=== PATIENT | male | born 1985 | race Caucasian/White ===

== ENCOUNTER 2017-02-23 16:55 | Inpatient (IN) | payer OTHER ==
[2017-02-23 21:04] VITALS: BMI 27.3
--- NOTE | 2017-02-23 21:33 | HP ---
CIWA Score - CIWA Score Nausea/Vomitin-Mild Nausea/No Vomiting Muscle Tremors: 4-Moderate,w/Arms Extend Anxiety: 4-Mod. Anxious/Guarded Agitation: 4-Moderately Restless Paroxysmal Sweats: 1-Minimal Palms Moist Orientation: 0-Oriented Tacttile Disturbances: 0-None Auditory Disturbances: 0-None Visual Disturbances: 0-None Headache: 1-Very Mild CIWA-Ar Total Score: 15 Admission ROS BHS - HPI Chief Complaint: withdrawal sx Allergies/Adverse Reactions: Allergies Allergy/AdvReac Type Severity Reaction Status Date / Time NSAIDS (Non-Steroidal Allergy Verified 02/01/16 16:24 Anti-Inflamma Penicillins Allergy Verified 02/01/16 16:24 History of Present Illness: 31 years old male with long history of xanax klonopin nicotine dependence has hyperlipidemia no treatment, and depression is admitted to detox Exam Limitations: No Limitations - Ebola screening Have you traveled outside of the country in the last 21 days: No Have you had contact with anyone from an Ebola affected area: No Have you been sick,other than usual withdrawal symptoms: No Do you have a fever: No - Review of Systems Constitutional: Changes in sleep, Weight Stable EENT: reports: No Symptoms Reported Respiratory: reports: No Symptoms reported Cardiac: reports: No Symptoms Reported GI: reports: Nausea, Poor Fluid Intake, Abdominal cramping : reports: No Symptoms Reported Musculoskeletal: reports: No Symptoms Reported Integumentary: reports: No Symptoms Reported Neuro: reports: Tremors Endocrine: reports: No Symptoms Reported Hematology: reports: No Symptoms Reported Psychiatric: reports: Judgement Intact, Orientated x3, Depressed Other Systems: Reviewed and Negative Patient History - Patient Medical History Hx Anemia: No Hx Asthma: No Hx Chronic Obstructive Pulmonary Disease (COPD): No Hx Cancer: No Hx Cardiac Disorders: No Hx Congestive Heart Failure: No Hx Hypertension: No Hx Hypercholesterolemia: Yes (no treatment) Hx Pacemaker: No HX Cerebrovascular Accident: No Hx Seizures: No Hx Dementia: No Hx Diabetes: No Hx Gastrointestinal Disorders: No Hx Liver Disease: No Hx Genitourinary Disorders: No Hx Sexually Transmitted Disorders: No Hx Renal Disease (ESRD): No Hx Thyroid Disease: No Hx Human Immunodeficiency Virus (HIV): No (LAST 12/17) Hx Hepatitis C: No Hx Depression: Yes Hx Suicide Attempt: No Hx Bipolar Disorder: No Hx Schizophrenia: No - Patient Surgical History Past Surgical History: No Hx Neurologic Surgery: No Hx Cataract Extraction: No Hx Cardiac Surgery: No Hx Lung Surgery: No Hx Breast Surgery: No Hx Breast Biopsy: No Hx Abdominal Surgery: No Hx Appendectomy: No Hx Cholecystectomy: No Hx Genitourinary Surgery: No Hx Orthopedic Surgery: No - PPD History Previous Implant?: Yes Documented Results: Negative w/proof Implanted On Prior [facility] Admission?: Yes Date: 02/03/16 PPD to be Administered?: Yes - Smoking Cessation Smoking history: Current every day smoker Have you smoked in the past 12 months: Yes Aproximately how many cigarettes per day: 20 Hx Chewing Tobacco Use: No Initiated information on smoking cessation: Yes 'Breaking Loose' booklet given: 02/23/17 - Substance & Tx. History Hx Alcohol Use: No Hx Substance Use: Yes Substance Use Type: Cocaine, Opiates, Tranquilizers Hx Substance Use Treatment: Yes (10/2015 [facility] - Substances Abused Alprazolam (Xanax) Route: Oral Frequency: Daily Amount used: 4 mg Age of first use: 25 Date of Last Use: 02/22/17 Benzodiazepine (Klonopin) Route: Oral Frequency: Daily Amount used: 1 mg Age of first use: 29 Date of Last Use: 02/22/17 Family Disease History - Family Disease History Family Disease History: Diabetes: Father Admission Physical Exam [facility] - Vital Signs Vital Signs: Vital Signs - 24 hr 02/23/17 20:58 Temperature 98.0 F Pulse Rate 61 Respiratory 20 Rate Blood Pressure 121/72 - Physical General Appearance: Yes: Nourished, Appropriately Dressed, Mild Distress, Tremorous, Irritable, Sweating, Anxious HEENTM: Yes: Hearing grossly Normal, Normal ENT Inspection, Normocephalic, Normal Voice Respiratory: Yes: Chest Non-Tender, Lungs Clear, Normal Breath Sounds, No Respiratory Distress, No Accessory Muscle Use Neck: Yes: Supple, Trachea in good position Breast: Yes: Breasts Symetrical Cardiology: Yes: Regular Rhythm, Regular Rate, S1, S2 Abdominal: Yes: Non Tender, Soft Genitourinary: Yes: Within Normal Limits Back: Yes: Normal Inspection Musculoskeletal: Yes: full range of Motion, Gait Steady Extremities: Yes: Normal Inspection, Normal Range of Motion, Non-Tender, Tremors Neurological: Yes: Alert, Motor Strength 5/5, Normal Response, Depressed Affect Integumentary: Yes: Warm Lymphatic: Yes: Within Normal Limits - Diagnostic (1) Methadone maintenance therapy patient Current Visit: Yes Status: Chronic Comment: 100 mg verification pending (2) Nicotine dependence Current Visit: Yes Status: Chronic Qualifiers: Nicotine product type: cigarettes Substance use status: in withdrawal Qualified Code(s): F17.213 - Nicotine dependence, cigarettes, with withdrawal; F17.213 - Nicotine dependence, cigarettes, with withdrawal (3) Depression (emotion) Current Visit: Yes Status: Suspected Qualifiers: Depression Type: dysthymia Qualified Code(s): F34.1 - Dysthymic disorder; F34.1 - Dysthymic disorder; F34.1 - Dysthymic disorder (4) Sedative, hypnotic or anxiolytic dependence with withdrawal, uncomplicated Current Visit: Yes Status: Acute Cleared for Admission [facility] - Detox or Rehab [facility] Level of Care: Medically Managed Detox Regimen/Protocol: Valium [facility] Breath Alcohol Content Breath Alcohol Content: 0 Urine Drug Screen - Results Drug Screen Negative: No Urine Drug Screen Results: CHUCKY-Cocaine, OPI-Opiates, BZO-Benzodiazepines, MTD- Methadone
[2017-02-23] MEDS ORDERED: MAG HYDROX/AL HYDROX/SIMETH 30 ML UNIT-DOSE CUP PO PRN (21:38)
[2017-02-23] MEDS ORDERED: NICOTINE POLACRILEX 4 MG GUM BUC PRN (21:38)
[2017-02-23] MEDS ORDERED: diazePAM 5 MG TABLET PO ONE (21:38)
[2017-02-23] MEDS ORDERED: MAGNESIUM HYDROX 2400MG/30ML ORAL SUSPENSION 30 ML CUP PO PRN (21:38)
[2017-02-23] MEDS ORDERED: LOPERAMIDE HCL 2 MG CAPSULE PO PRN (21:38)
[2017-02-23] MEDS ORDERED: ACETAMINOPHEN 325 MG TABLET (FP) PO PRN (21:38)
[2017-02-23] MEDS ORDERED: P-EPHED 60MG/TRIPROLIDI 2.5MG TABLET PO PRN (21:38)
[2017-02-23] MEDS ORDERED: MENTHOL/PHENOL 1 EACH UD MM PRN (21:38)
[2017-02-23] MEDS ORDERED: guaiFENesin/D-METHORPHAN HB 10 ML UNIT-DOSE CUPS PO PRN (21:38)
[2017-02-23] MEDS ORDERED: MAGNESIUM CITRATE 300 ML BOTTLE PO PRN (21:38)
[2017-02-23] MEDS: diazePAM 5 MG TABLET PO SCH (23:38)
[2017-02-23] MEDS: THIAMINE HCL 100 MG TABLET (FP) PO SCH (23:39)
[2017-02-23] MEDS: diphenhydrAMINE HCL 50 MG CAPSULE PO PRN (23:40)
[2017-02-24] MEDS: diazePAM 5 MG TABLET PO SCH ×3 (05:41→22:23)
[2017-02-24] MEDS ORDERED: METHADONE HCL 10 MG TABLET PO SCH (09:45)
[2017-02-24] MEDS ORDERED: METHADONE HCL 10 MG TABLET ONE (10:01)
[2017-02-24] MEDS ORDERED: METHADONE HCL 40 MG DISPERSABLE TABLET ONE (10:02)
[2017-02-24 10:09] LABS: MCH 29.3 pg (25.7-33.7); MCHC 33.6 g/dl (32.0-35.9); MEAN CELL VOLUME 87.2 fl (80-96); MEAN PLT VOLUME 7.3 fl (7.5-11.1); PLATELET COUNT 297 K/MM3 (134-434); RDW 14.3 % (11.9-15.9); WHITE BLOOD COUNT 6.4 K/mm3 (4.0-10.0)
[2017-02-24] MEDS: METHADONE 80 MG, METHADONE 20 MG PO SCH (10:18)
[2017-02-24] MEDS: diazePAM 5 MG TABLET PO PRN ×2 (10:18→17:18)
[2017-02-24] MEDS: PRENATAL VITAMINS W/ FOLIC ACID TABLET (FP) PO SCH (10:18)
[2017-02-24] MEDS: NICOTINE 21 MG/24 HOURS TOPICAL PATCH TD SCH (10:18)
[2017-02-24 10:26] LABS: ALBUMIN 3.2 g/dl (3.4-5.0); ANION GAP 9 (8-16); CALCIUM 8.1 mg/dL (8.5-10.1); CO2 28 mmol/L (21-32); GLUCOSE,RANDOM 83 mg/dL (74-106); SGOT/AST 14 U/L (15-37); SGPT/ALT 26 U/L (12-78)
[2017-02-24 10:27] LABS: ALK PHOS 84 U/L (45-117); BILIRUBIN,TOTAL 0.3 mg/dL (0.2-1.0); TOT PROT 6.2 g/dl (6.4-8.2)
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
--- NOTE | 2017-02-24 11:25 | PN ---
[facility] CIWA - CIWA Score Nausea/Vomitin-No Nausea/No Vomiting Muscle Tremors: 3 Anxiety: 4-Mod. Anxious/Guarded Agitation: 3 Paroxysmal Sweats: 3 Orientation: 0-Oriented Tacttile Disturbances: 0-None Auditory Disturbances: 2-Mild Harshness/Frighten Visual Disturbances: 2-Mild Sensitivity Headache: 0-None Present CIWA-Ar Total Score: 17 BHS Progress Note (SOAP) Subjective: Sweating, Fatigue, Tremors. Objective: PT. A & O X 3, OBSERVED AMBULATING ON UNIT. NO ACUTE DISTRESS. 02/24/17 11:22 Vital Signs Temperature 96.1 F L 02/24/17 09:39 Pulse Rate 76 02/24/17 09:39 Respiratory Rate 18 02/24/17 09:39 Blood Pressure 113/72 02/24/17 09:39 O2 Sat by Pulse Oximetry (%) Laboratory Tests 02/24/17 02/24/17 07:00 07:00 WBC 6.4 RBC 4.64 Hgb 13.6 Hct 40.5 MCV 87.2 MCH 29.3 MCHC 33.6 RDW 14.3 Plt Count 297 MPV 7.3 L Sodium 144 Potassium 3.8 Chloride 107 Carbon Dioxide 28 Anion Gap 9 BUN 16 Creatinine 1.0 D Creat Clearance w eGFR > 60 Random Glucose 83 Calcium 8.1 L Total Bilirubin 0.3 D AST 14 L D ALT 26 Alkaline Phosphatase 84 Total Protein 6.2 L Albumin 3.2 L LABS NOTED. UA, RPR, HCV AB, AND HIV RESULTS PENDING. 02/24/17 11:24 Assessment: 02/24/17 11:24 WITHDRAWAL SYMPTOMS. Plan: CONTINUE DETOX. INCREASE DAILY PO FLUID INTAKE.
[2017-02-24 12:28] LABS: HIV 1 & 2 AB NEGATIVE; HIV 1 AGp24 NEGATIVE
--- NOTE | 2017-02-24 20:26 | EKG ---
Test Reason : Blood Pressure : / mmHG Vent. Rate : 064 BPM Atrial Rate : 064 BPM P-R Int : 176 ms QRS Dur : 094 ms QT Int : 432 ms P-R-T Axes : 057 082 050 degrees QTc Int : 445 ms NORMAL SINUS RHYTHM WITH SINUS ARRHYTHMIA NORMAL ECG NO PREVIOUS ECGS AVAILABLE Confirmed by PIERRE BEY MD ([id number]) on 02/24/2017 8:26:40 PM Referred By: BELKIS PRIEST Confirmed By:PIERRE BEY MD
[2017-02-24] MEDS: diphenhydrAMINE HCL 50 MG CAPSULE PO PRN (22:23)
[2017-02-24] MEDS: THIAMINE HCL 100 MG TABLET (FP) PO SCH (22:23)
[2017-02-25] MEDS ORDERED: METHADONE HCL 10 MG TABLET ONE (03:50)
[2017-02-25] MEDS ORDERED: METHADONE HCL 40 MG DISPERSABLE TABLET ONE (03:51)
[2017-02-25] MEDS: diazePAM 5 MG TABLET PO PRN ×2 (05:44→17:06)
[2017-02-25] MEDS: METHADONE 80 MG, METHADONE 20 MG PO SCH (05:44)
[2017-02-25] MEDS: PRENATAL VITAMINS W/ FOLIC ACID TABLET (FP) PO SCH (10:07)
[2017-02-25] MEDS: diazePAM 5 MG TABLET PO SCH ×2 (10:07→22:16)
[2017-02-25] MEDS: NICOTINE 21 MG/24 HOURS TOPICAL PATCH TD SCH (10:08)
--- NOTE | 2017-02-25 10:34 | PN ---
[facility] CIWA - CIWA Score Nausea/Vomitin-No Nausea/No Vomiting Muscle Tremors: 4-Moderate,w/Arms Extend Anxiety: 4-Mod. Anxious/Guarded Agitation: 4-Moderately Restless Paroxysmal Sweats: 1-Minimal Palms Moist Orientation: 0-Oriented Tacttile Disturbances: 3-Moderate Itch/Numb/Burn Auditory Disturbances: 0-None Visual Disturbances: 0-None Headache: 0-None Present CIWA-Ar Total Score: 16 S Progress Note (SOAP) Subjective: ANXIETY,SWEATS. DETOX PROCEEDING WELL. Objective: 02/25/17 10:33 Vital Signs Temperature 98.1 F 02/25/17 09:47 Pulse Rate 82 02/25/17 09:47 Respiratory Rate 18 02/25/17 09:47 Blood Pressure 112/65 02/25/17 09:47 O2 Sat by Pulse Oximetry (%) Laboratory Last Values WBC 6.4 K/mm3 (4.0-10.0) 02/24/17 07:00 RBC 4.64 M/mm3 (4.00-5.60) 02/24/17 07:00 Hgb 13.6 GM/dL (11.7-16.9) 02/24/17 07:00 Hct 40.5 % (35.4-49) 02/24/17 07:00 MCV 87.2 fl (80-96) 02/24/17 07:00 MCH 29.3 pg (25.7-33.7) 02/24/17 07:00 MCHC 33.6 g/dl (32.0-35.9) 02/24/17 07:00 RDW 14.3 % (11.9-15.9) 02/24/17 07:00 Plt Count 297 K/MM3 (134-434) 02/24/17 07:00 MPV 7.3 fl (7.5-11.1) L 02/24/17 07:00 Sodium 144 mmol/L (136-145) 02/24/17 07:00 Potassium 3.8 mmol/L (3.5-5.1) 02/24/17 07:00 Chloride 107 mmol/L (98-107) 02/24/17 07:00 Carbon Dioxide 28 mmol/L (21-32) 02/24/17 07:00 Anion Gap 9 (8-16) 02/24/17 07:00 BUN 16 mg/dL (7-18) 02/24/17 07:00 Creatinine 1.0 mg/dL (0.7-1.3) D 02/24/17 07:00 Creat Clearance w eGFR > 60 (>60) 02/24/17 07:00 Random Glucose 83 mg/dL (74-106) 02/24/17 07:00 Calcium 8.1 mg/dL (8.5-10.1) L 02/24/17 07:00 Total Bilirubin 0.3 mg/dL (0.2-1.0) D 02/24/17 07:00 AST 14 U/L (15-37) L D 02/24/17 07:00 ALT 26 U/L (12-78) 02/24/17 07:00 Alkaline Phosphatase 84 U/L (45-117) 02/24/17 07:00 Total Protein 6.2 g/dl (6.4-8.2) L 02/24/17 07:00 Albumin 3.2 g/dl (3.4-5.0) L 02/24/17 07:00 RPR Titer Nonreactive (NONREACTIVE) 02/24/17 07:00 Hepatitis C Antibody <0.1 s/co ratio (0.0-0.9) 02/23/17 07:00 HIV 1&2 Antibody Screen Negative 02/24/17 07:00 HIV P24 Antigen Negative 02/24/17 07:00 Assessment: 02/25/17 10:33 WITHDRAWAL SX Plan: CONTINUE DETOX
[2017-02-25 13:26] LABS: URINE APPEARANCE SLCLOUDY; URINE BILIRUBIN NEGATIVE (NEGATIVE); URINE BLOOD NEGATIVE (NEGATIVE); URINE COLOR YELLOW; URINE GLUCOSE (UA) NEGATIVE (NEGATIVE); URINE KETONE NEGATIVE (NEGATIVE); URINE NITRITE NEGATIVE (NEGATIVE); URINE PROTEIN NEGATIVE (NEGATIVE); URINE UROBILINOGEN NEGATIVE mg/dL (0.2-1.0)
[2017-02-25 17:11] LABS: URINE LEUK ESTERASE Negative (NEGATIVE)
[2017-02-25] MEDS: THIAMINE HCL 100 MG TABLET (FP) PO SCH (22:16)
[2017-02-25] MEDS: diphenhydrAMINE HCL 50 MG CAPSULE PO PRN (22:16)
[2017-02-26] MEDS ORDERED: METHADONE HCL 40 MG DISPERSABLE TABLET ONE (03:57)
[2017-02-26] MEDS ORDERED: METHADONE HCL 10 MG TABLET ONE (03:57)
[2017-02-26] MEDS: METHADONE 80 MG, METHADONE 20 MG PO SCH (05:47)
[2017-02-26] MEDS: diazePAM 5 MG TABLET PO PRN (05:47)
[2017-02-26] MEDS: diazePAM 5 MG TABLET PO SCH (10:07)
[2017-02-26] MEDS: NICOTINE 21 MG/24 HOURS TOPICAL PATCH TD SCH (10:07)
[2017-02-26] MEDS: PRENATAL VITAMINS W/ FOLIC ACID TABLET (FP) PO SCH (10:07)
--- NOTE | 2017-02-26 10:10 | PN ---
S Progress Note (SOAP) Subjective: DECREASED ANXIETY,SWEATS, DETOX PROCEEDING WELL. Objective: 02/26/17 10:09 Vital Signs Temperature 98.9 F 02/26/17 09:11 Pulse Rate 74 02/26/17 09:11 Respiratory Rate 20 02/26/17 09:11 Blood Pressure 104/66 02/26/17 09:11 O2 Sat by Pulse Oximetry (%) Laboratory Last Values WBC 6.4 K/mm3 (4.0-10.0) 02/24/17 07:00 RBC 4.64 M/mm3 (4.00-5.60) 02/24/17 07:00 Hgb 13.6 GM/dL (11.7-16.9) 02/24/17 07:00 Hct 40.5 % (35.4-49) 02/24/17 07:00 MCV 87.2 fl (80-96) 02/24/17 07:00 MCH 29.3 pg (25.7-33.7) 02/24/17 07:00 MCHC 33.6 g/dl (32.0-35.9) 02/24/17 07:00 RDW 14.3 % (11.9-15.9) 02/24/17 07:00 Plt Count 297 K/MM3 (134-434) 02/24/17 07:00 MPV 7.3 fl (7.5-11.1) L 02/24/17 07:00 Sodium 144 mmol/L (136-145) 02/24/17 07:00 Potassium 3.8 mmol/L (3.5-5.1) 02/24/17 07:00 Chloride 107 mmol/L (98-107) 02/24/17 07:00 Carbon Dioxide 28 mmol/L (21-32) 02/24/17 07:00 Anion Gap 9 (8-16) 02/24/17 07:00 BUN 16 mg/dL (7-18) 02/24/17 07:00 Creatinine 1.0 mg/dL (0.7-1.3) D 02/24/17 07:00 Creat Clearance w eGFR > 60 (>60) 02/24/17 07:00 Random Glucose 83 mg/dL (74-106) 02/24/17 07:00 Calcium 8.1 mg/dL (8.5-10.1) L 02/24/17 07:00 Total Bilirubin 0.3 mg/dL (0.2-1.0) D 02/24/17 07:00 AST 14 U/L (15-37) L D 02/24/17 07:00 ALT 26 U/L (12-78) 02/24/17 07:00 Alkaline Phosphatase 84 U/L (45-117) 02/24/17 07:00 Total Protein 6.2 g/dl (6.4-8.2) L 02/24/17 07:00 Albumin 3.2 g/dl (3.4-5.0) L 02/24/17 07:00 Urine Color Yellow 02/25/17 09:50 Urine Appearance Slcloudy 02/25/17 09:50 Urine pH 5.0 (5.0-8.0) 02/25/17 09:50 Ur Specific [place] 1.025 (1.005-1.025) 02/25/17 09:50 Urine Protein Negative (NEGATIVE) 02/25/17 09:50 Urine Glucose (UA) Negative (NEGATIVE) 02/25/17 09:50 Urine Ketones Negative (NEGATIVE) 02/25/17 09:50 Urine Blood Negative (NEGATIVE) 02/25/17 09:50 Urine Nitrite Negative (NEGATIVE) 02/25/17 09:50 Urine Bilirubin Negative (NEGATIVE) 02/25/17 09:50 Urine Urobilinogen Negative mg/dL (0.2-1.0) 02/25/17 09:50 Ur Leukocyte Esterase Negative (NEGATIVE) 02/25/17 09:50 RPR Titer Nonreactive (NONREACTIVE) 02/24/17 07:00 Hepatitis C Antibody <0.1 s/co ratio (0.0-0.9) 02/23/17 07:00 HIV 1&2 Antibody Screen Negative 02/24/17 07:00 HIV P24 Antigen Negative 02/24/17 07:00 Assessment: 02/26/17 10:09 DECREASED WITHDRAWAL SX Plan: CONTINUE DETOX
[2017-02-26 14:00] VITALS: BP 109/65; PULSE 82; TEMP 96.3
--- NOTE | 2017-02-26 14:58 | DS ---
[facility] Detox Discharge Summary Admission Date: 02/23/17 Discharge Date: 02/26/17 - History Present History: Opioid Dependence, Sedative Dependence, MMTP Additional Comments: Pt is medically stable. Alert o x 3. NAD.Discharged to rehab today. - Physical Exam Results Vital Signs: Vital Signs Temperature 96.3 F L 02/26/17 13:59 Pulse Rate 82 02/26/17 13:59 Respiratory Rate 20 02/26/17 13:59 Blood Pressure 109/65 02/26/17 13:59 O2 Sat by Pulse Oximetry (%) - Medication Discharge Medications: Ambulatory Orders NK [No Known Home Medication] 10/15/15 - Diagnosis (1) Sedative, hypnotic or anxiolytic dependence with withdrawal, uncomplicated Status: Acute (2) Nicotine dependence Status: Chronic Qualifiers: Nicotine product type: cigarettes Substance use status: in withdrawal Qualified Code(s): F17.213 - Nicotine dependence, cigarettes, with withdrawal; F17.213 - Nicotine dependence, cigarettes, with withdrawal (3) Methadone maintenance therapy patient Status: Chronic (4) Hyperlipidemia Status: Chronic Qualifiers: Hyperlipidemia type: unspecified Qualified Code(s): E78.5 - Hyperlipidemia, unspecified; E78.5 - Hyperlipidemia, unspecified; E78.5 - Hyperlipidemia, unspecified
[2017-02-27] MEDS ORDERED: diazePAM 5 MG TABLET PO SCH (10:00)
== END 2017-02-26 13:26 | disposition other institution (70) | DRG 773 ==
LOC: YASAS 16:55 → Y3N 22:34
PROVIDERS: ADMIT Internal Medicine; ATTEND Internal Medicine
PROC: HZ2ZZZZ Detoxification Services for Substance Abuse Treatment (ICD-10-PCS; principal; 2017-02-23)
DX: F13.230 Sedative, hypnotic or anxiolytic dependence with withdrawal, uncomplicated (principal); F11.20 Opioid dependence, uncomplicated; F17.213 Nicotine dependence, cigarettes, with withdrawal; F90.9 Attention-deficit hyperactivity disorder, unspecified type; F34.1 Dysthymic disorder; E78.5 Hyperlipidemia, unspecified; Z88.0 Allergy status to penicillin; Z88.6 Allergy status to analgesic agent
CPT/HCPCS: 36415; 80053; 81003; 85027; 86593; 86803; 87389; 93005; 93010

== ENCOUNTER 2017-02-26 15:49 | Inpatient (IN) | payer OTHER ==
--- NOTE | 2017-02-26 16:30 | HP ---
[facility] Rehab Assess/Revision - Admission History Admitted to Rehab from: [facility] Date of Admission to Rehab: 02/26/17 - Findings Detox History & Physical reviewed: Yes Concur with findings: Yes Comments/Additional Findings: transferred from detox to rehab admission as per protocol
--- NOTE | 2017-02-26 16:31 | HP ---
Admission ROS S - HPI Allergies/Adverse Reactions: Allergies Allergy/AdvReac Type Severity Reaction Status Date / Time NSAIDS (Non-Steroidal Allergy Verified 02/01/16 16:24 Anti-Inflamma Penicillins Allergy Verified 02/01/16 16:24 Patient History - Patient Medical History Hx Anemia: No Hx Asthma: No Hx Chronic Obstructive Pulmonary Disease (COPD): No Hx Cancer: No Hx Cardiac Disorders: No Hx Congestive Heart Failure: No Hx Hypertension: No Hx Hypercholesterolemia: Yes (no treatment) Hx Pacemaker: No HX Cerebrovascular Accident: No Hx Seizures: No Hx Dementia: No Hx Diabetes: No Hx Gastrointestinal Disorders: No Hx Liver Disease: No Hx Genitourinary Disorders: No Hx Sexually Transmitted Disorders: No Hx Renal Disease (ESRD): No Hx Thyroid Disease: No Hx Human Immunodeficiency Virus (HIV): No (LAST 12/17) Hx Hepatitis C: No Hx Depression: Yes Hx Suicide Attempt: No Hx Bipolar Disorder: No Hx Schizophrenia: No - Patient Surgical History Past Surgical History: No Hx Neurologic Surgery: No Hx Cataract Extraction: No Hx Cardiac Surgery: No Hx Lung Surgery: No Hx Breast Surgery: No Hx Breast Biopsy: No Hx Abdominal Surgery: No Hx Appendectomy: No Hx Cholecystectomy: No Hx Genitourinary Surgery: No Hx Section: No Hx Orthopedic Surgery: No Anesthesia Reaction: No - PPD History Date: 02/25/17 - Smoking Cessation Smoking history: Current every day smoker Have you smoked in the past 12 months: Yes Aproximately how many cigarettes per day: 20 Cigars Per Day: 0 Hx Chewing Tobacco Use: No Initiated information on smoking cessation: Yes 'Breaking Loose' booklet given: 02/26/17 Family Disease History - Family Disease History Family Disease History: Diabetes: Father BHS Breath Alcohol Content Breath Alcohol Content: 0 Inpatient Rehab Admission - Initial Determination Are CD services needed?: Yes Free of communicable disease: Yes Not in need of hospitalization: Yes - Rehab Admission Criteria Previous failed treatment: Yes Poor recovery environment: Yes Comorbidities: Yes Lacks judgement: No Patient is meeting Inpatient Rehab admission criteria:: Yes
[2017-02-26] MEDS ORDERED: MENTHOL/PHENOL 1 EACH UD MM PRN (16:32)
[2017-02-26] MEDS ORDERED: MAG HYDROX/AL HYDROX/SIMETH 30 ML UNIT-DOSE CUP PO PRN (16:32)
[2017-02-26] MEDS ORDERED: LOPERAMIDE HCL 2 MG CAPSULE PO PRN (16:32)
[2017-02-26] MEDS ORDERED: IBUPROFEN 400 MG TABLET (FP) PO PRN (16:32)
[2017-02-26] MEDS ORDERED: MAGNESIUM CITRATE 300 ML BOTTLE PO PRN (16:32)
[2017-02-26] MEDS ORDERED: guaiFENesin/D-METHORPHAN HB 10 ML UNIT-DOSE CUPS PO PRN (16:32)
[2017-02-26] MEDS ORDERED: MAGNESIUM HYDROX 2400MG/30ML ORAL SUSPENSION 30 ML CUP PO PRN (16:32)
[2017-02-26] MEDS ORDERED: P-EPHED 60MG/TRIPROLIDI 2.5MG TABLET PO PRN (16:32)
[2017-02-26] MEDS ORDERED: ACETAMINOPHEN 325 MG TABLET (FP) PO PRN (16:32)
[2017-02-26] MEDS ORDERED: NICOTINE POLACRILEX 2 MG GUM BUC PRN (16:32)
[2017-02-26] MEDS: diphenhydrAMINE HCL 50 MG CAPSULE PO PRN (21:27)
[2017-02-26] MEDS: THIAMINE HCL 100 MG TABLET (FP) PO SCH (21:27)
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
[2017-02-27] MEDS ORDERED: METHADONE HCL 40 MG DISPERSABLE TABLET PO SCH (07:45)
[2017-02-27] MEDS ORDERED: METHADONE HCL 10 MG TABLET ONE (07:48)
[2017-02-27] MEDS ORDERED: METHADONE HCL 40 MG DISPERSABLE TABLET ONE (07:49)
[2017-02-27] MEDS: METHADONE 80 MG, METHADONE 20 MG PO SCH (07:55)
[2017-02-27] MEDS: PRENATAL VITAMINS W/ FOLIC ACID TABLET (FP) PO SCH (09:57)
[2017-02-27] MEDS: NICOTINE 14 MG/24 HOURS TOPICAL PATCH TD PRN (09:57)
[2017-02-27] MEDS: diphenhydrAMINE HCL 50 MG CAPSULE PO PRN (21:30)
[2017-02-27] MEDS: THIAMINE HCL 100 MG TABLET (FP) PO SCH (21:30)
[2017-02-28] MEDS ORDERED: METHADONE HCL 10 MG TABLET ONE (06:22)
[2017-02-28] MEDS ORDERED: METHADONE HCL 40 MG DISPERSABLE TABLET ONE (06:23)
[2017-02-28] MEDS: METHADONE 80 MG, METHADONE 20 MG PO SCH (06:37)
[2017-02-28] MEDS: PRENATAL VITAMINS W/ FOLIC ACID TABLET (FP) PO SCH (10:16)
[2017-02-28] MEDS: NICOTINE 14 MG/24 HOURS TOPICAL PATCH TD PRN (10:17)
[2017-02-28] MEDS: diphenhydrAMINE HCL 50 MG CAPSULE PO PRN (21:57)
[2017-02-28] MEDS: THIAMINE HCL 100 MG TABLET (FP) PO SCH (21:57)
[2017-03-01] MEDS ORDERED: METHADONE HCL 10 MG TABLET ONE (03:11)
[2017-03-01] MEDS ORDERED: METHADONE HCL 40 MG DISPERSABLE TABLET ONE (03:12)
[2017-03-01] MEDS: METHADONE 80 MG, METHADONE 20 MG PO SCH (06:40)
[2017-03-01] MEDS: PRENATAL VITAMINS W/ FOLIC ACID TABLET (FP) PO SCH (10:11)
[2017-03-01] MEDS: NICOTINE 14 MG/24 HOURS TOPICAL PATCH TD PRN (10:11)
[2017-03-01] MEDS: THIAMINE HCL 100 MG TABLET (FP) PO SCH (21:39)
[2017-03-01] MEDS: diphenhydrAMINE HCL 50 MG CAPSULE PO PRN (21:39)
[2017-03-02] MEDS ORDERED: METHADONE HCL 10 MG TABLET ONE (05:21)
[2017-03-02] MEDS ORDERED: METHADONE HCL 40 MG DISPERSABLE TABLET ONE (05:22)
[2017-03-02] MEDS: METHADONE 80 MG, METHADONE 20 MG PO SCH (06:12)
[2017-03-02] MEDS: PRENATAL VITAMINS W/ FOLIC ACID TABLET (FP) PO SCH (10:21)
[2017-03-02] MEDS: NICOTINE 14 MG/24 HOURS TOPICAL PATCH TD PRN (10:22)
--- NOTE | 2017-03-02 13:28 | PN ---
Psychiatric Progress Note Vital Signs: Vital Signs Period Temp Pulse Resp BP Sys/Bronson Pulse Ox Last 24 Hr 98.0 F 68 16-18 103/64 Date of Session: 03/02/17 Chief Complaint:: " I need something for anxiety.I sleep poorly at night." HPI: Day 4 of rehabilitation treatment for heroin,cocaine and benzodiazepine dependence co-morbid with ADHD.Benign hospital course.This consult is sought to address current complaints of mild anxiety + sleep latency. ROS: Unremarkable. Current Medications: Active Medications Generic Name Dose Route Start Last Admin Trade Name Freq PRN Reason Stop Dose Admin Acetaminophen 650 mg 02/26/17 16:32 Tylenol - PO Q4H PRN FEVER OR PAIN Al Hydroxide/Mg Hydroxide 30 ml 02/26/17 16:32 Mylanta Oral Suspension - PO Q6H PRN DYSPEPSIA Diphenhydramine HCl 50 mg 02/26/17 16:32 03/01/17 21:39 Benadryl - PO 50 mg HSMR1 PRN Administration FOR ITCHING Eucalyptus/Menthol/Phenol/Sorbitol 1 each 02/26/17 16:32 Cepastat Lozenge - MM Q4H PRN SORE THROAT Guaifenesin 10 ml 02/26/17 16:32 Robitussin Dm - PO Q6H PRN COUGH Hydroxyzine Pamoate 50 mg 03/02/17 13:24 Vistaril - PO Q6H PRN FOR ITCHING Loperamide HCl 4 mg 02/26/17 16:32 Imodium - PO Q6H PRN DIARRHEA Magnesium Hydroxide 30 ml 02/26/17 16:32 Milk Of Magnesia - PO DAILY PRN CONSTIPATION Methadone HCl 80 mg/ Methadone 100 mg 02/27/17 08:00 03/02/17 06:12 HCl 20 mg PO 100 mg DAILY@0600 RYANNE Administration Nicotine 14 mg 02/26/17 17:00 03/02/17 10:22 Nicoderm Patch - TD 14 mg DAILY PRN Administration WITHDRAWAL(CONT SUBST) Nicotine Polacrilex 2 mg 02/26/17 16:32 02/28/17 10:17 Nicorette Gum - BUC 2 mg Q2H PRN Administration NICOTINE REPLACEMENT RX Multivit/Folic Acid/Iron 1 tab 02/27/17 10:00 03/02/17 10:21 Vitamins (Sjr) - PO 1 tab DAILY RYANNE Administration Pseudoephedrine/Triprolidine 1 combo 02/26/17 16:32 Actifed - PO TID PRN NASAL CONGESTION Quetiapine Fumarate 50 mg 03/02/17 22:00 Seroquel - PO HS RYANNE Thiamine HCl 100 mg 02/26/17 22:00 03/01/17 21:39 Vitamin B1 - PO 100 mg HS RYANNE Administration Medication(s) Change(s): Add-on medications : seroquel 50 mg po hs + vistaril 50 mg po q 6 hours prn.Side effects/benefits of both drugs are discussed with the patient.He is made aware,in particular,of risk of metabolic syndrome, cardiovascular adverse events,abnormal involuntary movements and oversedation.Mr Coppola agrees with this plan of care. Current Side Effect: No Lab tests ordered: No Lab tests reviewed: Yes Provider note:: Chart reviewed.Medications revisited.Patient is interviewed.Good and reliable historian.Mr Coppola is found to be moderately anxious,conversant and logical.Symptoms are legitimate.Patient is receptive to teaching about sleep hygiene,medications (indications/alternates/dosage,side effects/benefits) and advantages of sobriety.He agrees to a trial of seroquel.Stable mental status. Total face to face time:: 25 Mental Status Exam - Mental Status Exam Alert and Oriented to: Time, Place, Person Cognitive Function: Good Patient Appearance: Well Groomed Mood: Anxious Affect: Mood Congruent Patient Behavior: Appropriate, Cooperative Speech Pattern: Clear, Appropriate Voice Loudness: Normal Thought Process: Intact, Goal Oriented Thought Disorder: Not Present Hallucinations: Denies Suicidal Ideation: Denies Homicidal Ideation: Denies Insight/Judgement: Fair Sleep: Poorly, Difficulty falling asleep Appetite: Good Muscle strength/Tone: Normal Gait/Station: Normal Psychiatric Treatment Plan - Problem List (1) Insomnia Current Visit: Yes (2) Opioid dependence on agonist therapy Current Visit: No (3) Sedative hypnotic or anxiolytic dependence Current Visit: Yes (4) Cocaine dependence Current Visit: Yes (5) Nicotine dependence Current Visit: Yes (6) ADHD (attention deficit hyperactivity disorder) Current Visit: Yes (7) Anxiety disorder Current Visit: Yes
[2017-03-02] MEDS: hydrOXYzine PAMOATE 50 MG CAPSULE (FP) PO PRN (14:34)
[2017-03-02] MEDS: QUEtiapine FUMARATE 50 MG TABLET PO SCH (21:42)
[2017-03-02] MEDS: THIAMINE HCL 100 MG TABLET (FP) PO SCH (21:42)
[2017-03-02] MEDS: diphenhydrAMINE HCL 50 MG CAPSULE PO PRN (21:43)
[2017-03-03] MEDS ORDERED: METHADONE HCL 10 MG TABLET ONE (02:17)
[2017-03-03] MEDS ORDERED: METHADONE HCL 40 MG DISPERSABLE TABLET ONE (02:17)
[2017-03-03] MEDS: METHADONE 80 MG, METHADONE 20 MG PO SCH (06:14)
[2017-03-03] MEDS: PRENATAL VITAMINS W/ FOLIC ACID TABLET (FP) PO SCH (10:15)
[2017-03-03] MEDS: hydrOXYzine PAMOATE 50 MG CAPSULE (FP) PO PRN (10:16)
[2017-03-03] MEDS: NICOTINE 14 MG/24 HOURS TOPICAL PATCH TD PRN (11:56)
[2017-03-03] MEDS: QUEtiapine FUMARATE 50 MG TABLET PO SCH (21:31)
[2017-03-03] MEDS: THIAMINE HCL 100 MG TABLET (FP) PO SCH (21:31)
[2017-03-03] MEDS: diphenhydrAMINE HCL 50 MG CAPSULE PO PRN (21:32)
[2017-03-04] MEDS ORDERED: METHADONE HCL 40 MG DISPERSABLE TABLET ONE (03:10)
[2017-03-04] MEDS ORDERED: METHADONE HCL 10 MG TABLET ONE (03:10)
[2017-03-04] MEDS: METHADONE 80 MG, METHADONE 20 MG PO SCH (06:18)
[2017-03-04] MEDS: PRENATAL VITAMINS W/ FOLIC ACID TABLET (FP) PO SCH (10:23)
[2017-03-04] MEDS: hydrOXYzine PAMOATE 50 MG CAPSULE (FP) PO PRN ×2 (10:24→18:26)
[2017-03-04] MEDS: NICOTINE 14 MG/24 HOURS TOPICAL PATCH TD PRN (10:24)
[2017-03-04] MEDS: QUEtiapine FUMARATE 50 MG TABLET PO SCH (21:41)
[2017-03-04] MEDS: diphenhydrAMINE HCL 50 MG CAPSULE PO PRN (21:41)
[2017-03-04] MEDS: THIAMINE HCL 100 MG TABLET (FP) PO SCH (21:41)
[2017-03-05] MEDS ORDERED: METHADONE HCL 10 MG TABLET ONE (03:22)
[2017-03-05] MEDS ORDERED: METHADONE HCL 40 MG DISPERSABLE TABLET ONE (03:22)
[2017-03-05] MEDS: METHADONE 80 MG, METHADONE 20 MG PO SCH (06:17)
[2017-03-05] MEDS: PRENATAL VITAMINS W/ FOLIC ACID TABLET (FP) PO SCH (10:33)
[2017-03-05] MEDS: hydrOXYzine PAMOATE 50 MG CAPSULE (FP) PO PRN (10:33)
[2017-03-05] MEDS: NICOTINE 14 MG/24 HOURS TOPICAL PATCH TD PRN (10:34)
[2017-03-05] MEDS: QUEtiapine FUMARATE 50 MG TABLET PO SCH (21:44)
[2017-03-05] MEDS: THIAMINE HCL 100 MG TABLET (FP) PO SCH (21:44)
[2017-03-05] MEDS: diphenhydrAMINE HCL 50 MG CAPSULE PO PRN ×2 (21:44→23:38)
[2017-03-06] MEDS ORDERED: METHADONE HCL 40 MG DISPERSABLE TABLET ONE (06:41)
[2017-03-06] MEDS ORDERED: METHADONE HCL 10 MG TABLET ONE (06:42)
[2017-03-06] MEDS: METHADONE 80 MG, METHADONE 20 MG PO SCH (06:52)
[2017-03-06] MEDS: PRENATAL VITAMINS W/ FOLIC ACID TABLET (FP) PO SCH (10:05)
[2017-03-06] MEDS: NICOTINE 14 MG/24 HOURS TOPICAL PATCH TD PRN (10:05)
[2017-03-06] MEDS: hydrOXYzine PAMOATE 50 MG CAPSULE (FP) PO PRN (10:06)
[2017-03-06] MEDS: THIAMINE HCL 100 MG TABLET (FP) PO SCH (21:39)
[2017-03-06] MEDS: QUEtiapine FUMARATE 50 MG TABLET PO SCH (21:39)
[2017-03-06] MEDS: diphenhydrAMINE HCL 50 MG CAPSULE PO PRN (21:40)
[2017-03-07] MEDS ORDERED: METHADONE HCL 10 MG TABLET ONE (04:07)
[2017-03-07] MEDS ORDERED: METHADONE HCL 40 MG DISPERSABLE TABLET ONE (04:08)
[2017-03-07] MEDS: METHADONE 80 MG, METHADONE 20 MG PO SCH (06:21)
[2017-03-07] MEDS: hydrOXYzine PAMOATE 50 MG CAPSULE (FP) PO PRN (10:04)
[2017-03-07] MEDS: PRENATAL VITAMINS W/ FOLIC ACID TABLET (FP) PO SCH (10:04)
[2017-03-07] MEDS: NICOTINE 14 MG/24 HOURS TOPICAL PATCH TD PRN (10:05)
[2017-03-07] MEDS: THIAMINE HCL 100 MG TABLET (FP) PO SCH (21:28)
[2017-03-07] MEDS: QUEtiapine FUMARATE 50 MG TABLET PO SCH (21:28)
[2017-03-07] MEDS: diphenhydrAMINE HCL 50 MG CAPSULE PO PRN (21:28)
[2017-03-08] MEDS: diphenhydrAMINE HCL 50 MG CAPSULE PO PRN ×2 (01:29→21:35)
[2017-03-08] MEDS ORDERED: METHADONE HCL 10 MG TABLET ONE (03:54)
[2017-03-08] MEDS ORDERED: METHADONE HCL 40 MG DISPERSABLE TABLET ONE (03:54)
[2017-03-08] MEDS: METHADONE 80 MG, METHADONE 20 MG PO SCH (06:07)
[2017-03-08] MEDS: PRENATAL VITAMINS W/ FOLIC ACID TABLET (FP) PO SCH (10:07)
[2017-03-08] MEDS: NICOTINE 14 MG/24 HOURS TOPICAL PATCH TD PRN (10:07)
[2017-03-08] MEDS: hydrOXYzine PAMOATE 50 MG CAPSULE (FP) PO PRN (10:07)
[2017-03-08] MEDS: THIAMINE HCL 100 MG TABLET (FP) PO SCH (21:35)
[2017-03-08] MEDS: QUEtiapine FUMARATE 50 MG TABLET PO SCH (21:35)
[2017-03-09] MEDS: diphenhydrAMINE HCL 50 MG CAPSULE PO PRN ×2 (01:47→21:44)
[2017-03-09] MEDS ORDERED: METHADONE HCL 10 MG TABLET ONE (03:17)
[2017-03-09] MEDS ORDERED: METHADONE HCL 40 MG DISPERSABLE TABLET ONE (03:17)
[2017-03-09] MEDS: METHADONE 80 MG, METHADONE 20 MG PO SCH (06:17)
[2017-03-09] MEDS: PRENATAL VITAMINS W/ FOLIC ACID TABLET (FP) PO SCH (10:07)
[2017-03-09] MEDS: NICOTINE 14 MG/24 HOURS TOPICAL PATCH TD PRN (10:07)
[2017-03-09] MEDS: hydrOXYzine PAMOATE 50 MG CAPSULE (FP) PO PRN (10:08)
[2017-03-09] MEDS: QUEtiapine FUMARATE 50 MG TABLET PO SCH (21:44)
[2017-03-09] MEDS: THIAMINE HCL 100 MG TABLET (FP) PO SCH (21:44)
[2017-03-10] MEDS: diphenhydrAMINE HCL 50 MG CAPSULE PO PRN ×2 (00:43→21:24)
[2017-03-10] MEDS ORDERED: METHADONE HCL 10 MG TABLET ONE (04:16)
[2017-03-10] MEDS ORDERED: METHADONE HCL 40 MG DISPERSABLE TABLET ONE (04:17)
[2017-03-10] MEDS: METHADONE 80 MG, METHADONE 20 MG PO SCH (06:11)
[2017-03-10] MEDS: PRENATAL VITAMINS W/ FOLIC ACID TABLET (FP) PO SCH (10:09)
[2017-03-10] MEDS: NICOTINE 14 MG/24 HOURS TOPICAL PATCH TD PRN (10:10)
[2017-03-10] MEDS: hydrOXYzine PAMOATE 50 MG CAPSULE (FP) PO PRN (10:10)
[2017-03-10] MEDS: THIAMINE HCL 100 MG TABLET (FP) PO SCH (21:24)
[2017-03-10] MEDS: QUEtiapine FUMARATE 50 MG TABLET PO SCH (21:24)
[2017-03-11] MEDS ORDERED: METHADONE HCL 10 MG TABLET ONE (03:16)
[2017-03-11] MEDS ORDERED: METHADONE HCL 40 MG DISPERSABLE TABLET ONE (03:16)
[2017-03-11] MEDS: METHADONE 80 MG, METHADONE 20 MG PO SCH (06:30)
[2017-03-11] MEDS: hydrOXYzine PAMOATE 50 MG CAPSULE (FP) PO PRN ×2 (10:09→19:33)
[2017-03-11] MEDS: NICOTINE 14 MG/24 HOURS TOPICAL PATCH TD PRN (10:09)
[2017-03-11] MEDS: PRENATAL VITAMINS W/ FOLIC ACID TABLET (FP) PO SCH (10:09)
[2017-03-11] MEDS: QUEtiapine FUMARATE 50 MG TABLET PO SCH (21:26)
[2017-03-11] MEDS: THIAMINE HCL 100 MG TABLET (FP) PO SCH (21:26)
[2017-03-11] MEDS: diphenhydrAMINE HCL 50 MG CAPSULE PO PRN (21:26)
[2017-03-12] MEDS ORDERED: METHADONE HCL 40 MG DISPERSABLE TABLET ONE (03:23)
[2017-03-12] MEDS ORDERED: METHADONE HCL 10 MG TABLET ONE (03:23)
[2017-03-12] MEDS: METHADONE 80 MG, METHADONE 20 MG PO SCH (06:08)
[2017-03-12] MEDS: PRENATAL VITAMINS W/ FOLIC ACID TABLET (FP) PO SCH (10:12)
[2017-03-12] MEDS: hydrOXYzine PAMOATE 50 MG CAPSULE (FP) PO PRN (10:13)
[2017-03-12] MEDS: NICOTINE 14 MG/24 HOURS TOPICAL PATCH TD PRN (10:14)
[2017-03-12] MEDS: THIAMINE HCL 100 MG TABLET (FP) PO SCH (21:33)
[2017-03-12] MEDS: diphenhydrAMINE HCL 50 MG CAPSULE PO PRN (21:33)
[2017-03-12] MEDS: QUEtiapine FUMARATE 50 MG TABLET PO SCH (21:33)
[2017-03-13] MEDS ORDERED: METHADONE HCL 10 MG TABLET ONE (03:25)
[2017-03-13] MEDS ORDERED: METHADONE HCL 40 MG DISPERSABLE TABLET ONE (03:25)
[2017-03-13] MEDS: METHADONE 80 MG, METHADONE 20 MG PO SCH (06:08)
[2017-03-13] MEDS: PRENATAL VITAMINS W/ FOLIC ACID TABLET (FP) PO SCH (10:23)
[2017-03-13] MEDS: hydrOXYzine PAMOATE 50 MG CAPSULE (FP) PO PRN (10:24)
[2017-03-13] MEDS: NICOTINE 14 MG/24 HOURS TOPICAL PATCH TD PRN (10:24)
[2017-03-13] MEDS: THIAMINE HCL 100 MG TABLET (FP) PO SCH (21:48)
[2017-03-13] MEDS: QUEtiapine FUMARATE 50 MG TABLET PO SCH (21:48)
[2017-03-13] MEDS: diphenhydrAMINE HCL 50 MG CAPSULE PO PRN (21:49)
[2017-03-14] MEDS ORDERED: METHADONE HCL 10 MG TABLET ONE (03:14)
[2017-03-14] MEDS ORDERED: METHADONE HCL 40 MG DISPERSABLE TABLET ONE (03:15)
[2017-03-14] MEDS: METHADONE 80 MG, METHADONE 20 MG PO SCH (06:33)
[2017-03-14] MEDS: hydrOXYzine PAMOATE 50 MG CAPSULE (FP) PO PRN (10:04)
[2017-03-14] MEDS: NICOTINE 14 MG/24 HOURS TOPICAL PATCH TD PRN (10:04)
[2017-03-14] MEDS: PRENATAL VITAMINS W/ FOLIC ACID TABLET (FP) PO SCH (10:04)
[2017-03-14] MEDS: QUEtiapine FUMARATE 50 MG TABLET PO SCH (21:29)
[2017-03-14] MEDS: THIAMINE HCL 100 MG TABLET (FP) PO SCH (21:29)
[2017-03-14] MEDS: diphenhydrAMINE HCL 50 MG CAPSULE PO PRN (21:30)
[2017-03-15] MEDS ORDERED: METHADONE HCL 40 MG DISPERSABLE TABLET ONE (03:10)
[2017-03-15] MEDS ORDERED: METHADONE HCL 10 MG TABLET ONE (03:10)
[2017-03-15] MEDS: METHADONE 80 MG, METHADONE 20 MG PO SCH (06:37)
[2017-03-15] MEDS: PRENATAL VITAMINS W/ FOLIC ACID TABLET (FP) PO SCH (10:07)
[2017-03-15] MEDS: hydrOXYzine PAMOATE 50 MG CAPSULE (FP) PO PRN (10:07)
[2017-03-15] MEDS: NICOTINE 14 MG/24 HOURS TOPICAL PATCH TD PRN (10:08)
[2017-03-15] MEDS: QUEtiapine FUMARATE 50 MG TABLET PO SCH (21:40)
[2017-03-15] MEDS: THIAMINE HCL 100 MG TABLET (FP) PO SCH (21:40)
[2017-03-15] MEDS: diphenhydrAMINE HCL 50 MG CAPSULE PO PRN (21:40)
[2017-03-16] MEDS ORDERED: METHADONE HCL 10 MG TABLET ONE (03:07)
[2017-03-16] MEDS ORDERED: METHADONE HCL 40 MG DISPERSABLE TABLET ONE (03:07)
[2017-03-16] MEDS: METHADONE 80 MG, METHADONE 20 MG PO SCH (06:13)
[2017-03-16] MEDS: PRENATAL VITAMINS W/ FOLIC ACID TABLET (FP) PO SCH (09:48)
[2017-03-16] MEDS: hydrOXYzine PAMOATE 50 MG CAPSULE (FP) PO PRN (09:49)
[2017-03-16] MEDS: NICOTINE 14 MG/24 HOURS TOPICAL PATCH TD PRN (09:49)
--- NOTE | 2017-03-16 14:31 | PN ---
Psychiatric Progress Note Vital Signs: Vital Signs Period Temp Pulse Resp BP Sys/Bronson Pulse Ox Last 24 Hr 97.9 F 74 18-18 118/69 Date of Session: 03/16/17 Chief Complaint:: "I can't think clearly" HPI: Patient is addressing heroin,cocaine and benzodiazepine dependence co- morbid with ADHD. Current Medications: Active Medications Generic Name Dose Route Start Last Admin Trade Name Freq PRN Reason Stop Dose Admin Acetaminophen 650 mg 02/26/17 16:32 Tylenol - PO Q4H PRN FEVER OR PAIN Al Hydroxide/Mg Hydroxide 30 ml 02/26/17 16:32 Mylanta Oral Suspension - PO Q6H PRN DYSPEPSIA Bupropion HCl 75 mg 03/17/17 10:00 Wellbutrin - PO DAILY RYANNE Diphenhydramine HCl 50 mg 02/26/17 16:32 03/15/17 21:40 Benadryl - PO 50 mg HSMR1 PRN Administration FOR ITCHING Eucalyptus/Menthol/Phenol/Sorbitol 1 each 02/26/17 16:32 Cepastat Lozenge - MM Q4H PRN SORE THROAT Guaifenesin 10 ml 02/26/17 16:32 Robitussin Dm - PO Q6H PRN COUGH Hydroxyzine Pamoate 50 mg 03/02/17 13:24 03/16/17 09:49 Vistaril - PO 50 mg Q6H PRN Administration FOR ITCHING Loperamide HCl 4 mg 02/26/17 16:32 Imodium - PO Q6H PRN DIARRHEA Magnesium Hydroxide 30 ml 02/26/17 16:32 Milk Of Magnesia - PO DAILY PRN CONSTIPATION Methadone HCl 80 mg/ Methadone 100 mg 03/12/17 06:00 03/16/17 06:13 HCl 20 mg PO 100 mg DAILY@0600 RYANNE Administration Nicotine 14 mg 02/26/17 17:00 03/16/17 09:49 Nicoderm Patch - TD 14 mg DAILY PRN Administration WITHDRAWAL(CONT SUBST) Nicotine Polacrilex 2 mg 02/26/17 16:32 02/28/17 10:17 Nicorette Gum - BUC 2 mg Q2H PRN Administration NICOTINE REPLACEMENT RX Multivit/Folic Acid/Iron 1 tab 02/27/17 10:00 03/16/17 09:48 Vitamins (Sjr) - PO 1 tab DAILY RYANNE Administration Pseudoephedrine/Triprolidine 1 combo 02/26/17 16:32 Actifed - PO TID PRN NASAL CONGESTION Quetiapine Fumarate 50 mg 03/02/17 22:00 03/15/17 21:40 Seroquel - PO 50 mg HS RYANNE Administration Thiamine HCl 100 mg 02/26/17 22:00 03/15/17 21:40 Vitamin B1 - PO 100 mg HS RYANNE Administration Medication(s) Change(s): add Wellbutrin 75 mg daily. Current Side Effect: No Lab tests ordered: No Lab tests reviewed: Yes Provider note:: Reviewed the chart, Dr.s' Osorio and Damaso notes appreciated, patient's medications reviewed, patient reports having difficult time to focus and think clearly while in groups, states was diagnosed as ADHD as a child and was on Ritalin, he reports he feels depressed and easlilly destructed. Psychoeducations and psychotherapy provided, discussed indications and properties of Wellbutrin, med. recommended, patient agreed to start, will continue to monitor progress. Total face to face time:: 25 Mental Status Exam - Mental Status Exam Alert and Oriented to: Time, Place, Person Cognitive Function: Good Patient Appearance: Well Groomed Mood: Sad Affect: Mood Congruent Patient Behavior: Appropriate, Cooperative Speech Pattern: Clear, Appropriate Voice Loudness: Normal Thought Process: Intact, Goal Oriented Thought Disorder: Not Present Hallucinations: Denies Suicidal Ideation: Denies Homicidal Ideation: Denies Insight/Judgement: Fair Sleep: Fair Muscle strength/Tone: Normal Gait/Station: Normal Psychiatric Treatment Plan - Problem List (1) ADHD (attention deficit hyperactivity disorder) Current Visit: Yes (2) Cocaine dependence Current Visit: Yes (3) Nicotine dependence Current Visit: Yes Qualifiers: Nicotine product type: cigarettes Substance use status: in withdrawal Qualified Code(s): F17.213 - Nicotine dependence, cigarettes, with withdrawal (4) Opioid dependence Current Visit: Yes (5) Sedative hypnotic or anxiolytic dependence Current Visit: Yes (6) Anxiety and depression Current Visit: No
[2017-03-16] MEDS: THIAMINE HCL 100 MG TABLET (FP) PO SCH (21:39)
[2017-03-16] MEDS: diphenhydrAMINE HCL 50 MG CAPSULE PO PRN (21:39)
[2017-03-16] MEDS: QUEtiapine FUMARATE 50 MG TABLET PO SCH (21:39)
[2017-03-17] MEDS: diphenhydrAMINE HCL 50 MG CAPSULE PO PRN ×2 (01:34→21:20)
[2017-03-17] MEDS ORDERED: METHADONE HCL 40 MG DISPERSABLE TABLET ONE ×2 (03:13→03:38)
[2017-03-17] MEDS ORDERED: METHADONE HCL 10 MG TABLET ONE (03:37)
[2017-03-17] MEDS: METHADONE 80 MG, METHADONE 20 MG PO SCH (06:14)
[2017-03-17] MEDS: PRENATAL VITAMINS W/ FOLIC ACID TABLET (FP) PO SCH (09:59)
[2017-03-17] MEDS: buPROPion HCL 75 MG TABLET PO SCH (09:59)
[2017-03-17] MEDS: hydrOXYzine PAMOATE 50 MG CAPSULE (FP) PO PRN (10:00)
[2017-03-17] MEDS: THIAMINE HCL 100 MG TABLET (FP) PO SCH (21:20)
[2017-03-17] MEDS: QUEtiapine FUMARATE 50 MG TABLET PO SCH (21:20)
[2017-03-18] MEDS ORDERED: METHADONE HCL 40 MG DISPERSABLE TABLET ONE (03:10)
[2017-03-18] MEDS ORDERED: METHADONE HCL 10 MG TABLET ONE (03:10)
[2017-03-18] MEDS: METHADONE 80 MG, METHADONE 20 MG PO SCH (06:12)
[2017-03-18] MEDS: NICOTINE 14 MG/24 HOURS TOPICAL PATCH TD PRN (10:04)
[2017-03-18] MEDS: buPROPion HCL 75 MG TABLET PO SCH (10:04)
[2017-03-18] MEDS: hydrOXYzine PAMOATE 50 MG CAPSULE (FP) PO PRN (10:04)
[2017-03-18] MEDS: PRENATAL VITAMINS W/ FOLIC ACID TABLET (FP) PO SCH (10:04)
[2017-03-18] MEDS: THIAMINE HCL 100 MG TABLET (FP) PO SCH (21:18)
[2017-03-18] MEDS: diphenhydrAMINE HCL 50 MG CAPSULE PO PRN (21:18)
[2017-03-18] MEDS: QUEtiapine FUMARATE 50 MG TABLET PO SCH (21:18)
[2017-03-19] MEDS ORDERED: METHADONE HCL 10 MG TABLET ONE (06:01)
[2017-03-19] MEDS ORDERED: METHADONE HCL 40 MG DISPERSABLE TABLET ONE (06:01)
[2017-03-19] MEDS: METHADONE 80 MG, METHADONE 20 MG PO SCH (06:14)
[2017-03-19] MEDS: NICOTINE 14 MG/24 HOURS TOPICAL PATCH TD SCH (10:12)
[2017-03-19] MEDS: hydrOXYzine PAMOATE 50 MG CAPSULE (FP) PO PRN (10:13)
[2017-03-19] MEDS: PRENATAL VITAMINS W/ FOLIC ACID TABLET (FP) PO SCH (10:13)
[2017-03-19] MEDS: buPROPion HCL 75 MG TABLET PO SCH (10:14)
[2017-03-19] MEDS: THIAMINE HCL 100 MG TABLET (FP) PO SCH (21:24)
[2017-03-19] MEDS: QUEtiapine FUMARATE 50 MG TABLET PO SCH (21:24)
[2017-03-19] MEDS: diphenhydrAMINE HCL 50 MG CAPSULE PO PRN (21:24)
[2017-03-20] MEDS ORDERED: METHADONE HCL 10 MG TABLET ONE (06:05)
[2017-03-20] MEDS ORDERED: METHADONE HCL 40 MG DISPERSABLE TABLET ONE (06:05)
[2017-03-20] MEDS: METHADONE 80 MG, METHADONE 20 MG PO SCH (06:29)
[2017-03-20] MEDS: PRENATAL VITAMINS W/ FOLIC ACID TABLET (FP) PO SCH (10:00)
[2017-03-20] MEDS: NICOTINE 14 MG/24 HOURS TOPICAL PATCH TD SCH (10:00)
[2017-03-20] MEDS: buPROPion HCL 75 MG TABLET PO SCH (10:00)
[2017-03-20] MEDS: hydrOXYzine PAMOATE 50 MG CAPSULE (FP) PO PRN (10:01)
[2017-03-20] MEDS: diphenhydrAMINE HCL 50 MG CAPSULE PO PRN (21:24)
[2017-03-20] MEDS: THIAMINE HCL 100 MG TABLET (FP) PO SCH (21:24)
[2017-03-20] MEDS: QUEtiapine FUMARATE 50 MG TABLET PO SCH (21:24)
[2017-03-21] MEDS: diphenhydrAMINE HCL 50 MG CAPSULE PO PRN ×2 (00:54→21:20)
[2017-03-21] MEDS ORDERED: METHADONE HCL 40 MG DISPERSABLE TABLET ONE (03:43)
[2017-03-21] MEDS ORDERED: METHADONE HCL 10 MG TABLET ONE (03:43)
[2017-03-21] MEDS: METHADONE 80 MG, METHADONE 20 MG PO SCH (06:04)
[2017-03-21] MEDS: hydrOXYzine PAMOATE 50 MG CAPSULE (FP) PO PRN (09:57)
[2017-03-21] MEDS: PRENATAL VITAMINS W/ FOLIC ACID TABLET (FP) PO SCH (09:57)
[2017-03-21] MEDS: NICOTINE 14 MG/24 HOURS TOPICAL PATCH TD SCH (09:58)
[2017-03-21] MEDS: buPROPion HCL 75 MG TABLET PO SCH (09:58)
[2017-03-21] MEDS: THIAMINE HCL 100 MG TABLET (FP) PO SCH (21:20)
[2017-03-21] MEDS: QUEtiapine FUMARATE 50 MG TABLET PO SCH (21:20)
[2017-03-22] MEDS ORDERED: METHADONE HCL 10 MG TABLET ONE (03:40)
[2017-03-22] MEDS ORDERED: METHADONE HCL 40 MG DISPERSABLE TABLET ONE (03:41)
[2017-03-22] MEDS: METHADONE 80 MG, METHADONE 20 MG PO SCH (06:10)
[2017-03-22] MEDS: hydrOXYzine PAMOATE 50 MG CAPSULE (FP) PO PRN (10:02)
[2017-03-22] MEDS: buPROPion HCL 75 MG TABLET PO SCH (10:02)
[2017-03-22] MEDS: NICOTINE 14 MG/24 HOURS TOPICAL PATCH TD SCH (10:02)
[2017-03-22] MEDS: PRENATAL VITAMINS W/ FOLIC ACID TABLET (FP) PO SCH (10:02)
[2017-03-22] MEDS: diphenhydrAMINE HCL 50 MG CAPSULE PO PRN (21:31)
[2017-03-22] MEDS: THIAMINE HCL 100 MG TABLET (FP) PO SCH (21:31)
[2017-03-22] MEDS: QUEtiapine FUMARATE 50 MG TABLET PO SCH (21:31)
[2017-03-23] MEDS ORDERED: METHADONE HCL 10 MG TABLET ONE (03:20)
[2017-03-23] MEDS ORDERED: METHADONE HCL 40 MG DISPERSABLE TABLET ONE (03:21)
[2017-03-23] MEDS: METHADONE 80 MG, METHADONE 20 MG PO SCH (06:13)
[2017-03-23 07:10] VITALS: BP 125/82; PULSE 74; TEMP 97.9
--- NOTE | 2017-03-23 10:04 | PN ---
Psychiatric Progress Note Vital Signs: Vital Signs Period Temp Pulse Resp BP Sys/Bronson Pulse Ox Last 24 Hr 97.9 F 74 16-18 125/82 Date of Session: 03/23/17 Chief Complaint:: dischearge visit HPI: Patient is addressing heroin,cocaine and benzodiazepine dependence co- morbid with ADHD. Current Medications: Active Medications Generic Name Dose Route Start Last Admin Trade Name Freq PRN Reason Stop Dose Admin Acetaminophen 650 mg 02/26/17 16:32 Tylenol - PO Q4H PRN FEVER OR PAIN Al Hydroxide/Mg Hydroxide 30 ml 02/26/17 16:32 Mylanta Oral Suspension - PO Q6H PRN DYSPEPSIA Bupropion HCl 75 mg 03/17/17 10:00 03/22/17 10:02 Wellbutrin - PO 75 mg DAILY RYANNE Administration Diphenhydramine HCl 50 mg 02/26/17 16:32 03/22/17 21:31 Benadryl - PO 50 mg HSMR1 PRN Administration FOR ITCHING Eucalyptus/Menthol/Phenol/Sorbitol 1 each 02/26/17 16:32 Cepastat Lozenge - MM Q4H PRN SORE THROAT Guaifenesin 10 ml 02/26/17 16:32 Robitussin Dm - PO Q6H PRN COUGH Hydroxyzine Pamoate 50 mg 03/02/17 13:24 03/22/17 10:02 Vistaril - PO 50 mg Q6H PRN Administration FOR ITCHING Loperamide HCl 4 mg 02/26/17 16:32 Imodium - PO Q6H PRN DIARRHEA Magnesium Hydroxide 30 ml 02/26/17 16:32 Milk Of Magnesia - PO DAILY PRN CONSTIPATION Methadone HCl 80 mg/ Methadone 100 mg 03/19/17 06:00 03/23/17 06:13 HCl 20 mg PO 03/26/17 05:59 100 mg DAILY@0600 RYANNE Administration Nicotine 14 mg 03/19/17 10:00 03/22/17 10:02 Nicoderm Patch - TD 14 mg DAILY RYANNE Administration Nicotine Polacrilex 2 mg 02/26/17 16:32 02/28/17 10:17 Nicorette Gum - BUC 2 mg Q2H PRN Administration NICOTINE REPLACEMENT RX Multivit/Folic Acid/Iron 1 tab 02/27/17 10:00 03/22/17 10:02 Vitamins (Sjr) - PO 1 tab DAILY RYANNE Administration Pseudoephedrine/Triprolidine 1 combo 02/26/17 16:32 Actifed - PO TID PRN NASAL CONGESTION Quetiapine Fumarate 50 mg 03/02/17 22:00 03/22/17 21:31 Seroquel - PO 50 mg HS RYANNE Administration Thiamine HCl 100 mg 02/26/17 22:00 03/22/17 21:31 Vitamin B1 - PO 100 mg HS RYANNE Administration Current Side Effect: No Lab tests ordered: No Lab tests reviewed: Yes Provider note:: Patient has compelted today his treatment and met his identified goals, will continue to address his issues at [facility], he reports he learned a lot through this program: using coping skills, changing attitude and utilization all supports to prevent relapses. Wellbutrin and Seroquel well tolerated, eric saide-effects reported, patient noticed that he is able to focus better when Wellbutrin added to his treatment, scripts provided, patient was encouraged to take medications as indicated, patient is stable for discharge today. Total face to face time:: 20 Mental Status Exam - Mental Status Exam Alert and Oriented to: Time, Place, Person Cognitive Function: Good Patient Appearance: Well Groomed Mood: Hopeful Patient Behavior: Appropriate, Cooperative Speech Pattern: Clear, Appropriate Voice Loudness: Normal Thought Process: Intact, Goal Oriented Thought Disorder: Not Present Hallucinations: Denies Suicidal Ideation: Denies Homicidal Ideation: Denies Insight/Judgement: Fair Sleep: Fair Appetite: Good Muscle strength/Tone: Normal Gait/Station: Normal Psychiatric Treatment Plan - Problem List (1) ADHD (attention deficit hyperactivity disorder) Current Visit: Yes (2) Cocaine dependence Current Visit: Yes (3) Nicotine dependence Current Visit: Yes Qualifiers: Nicotine product type: cigarettes Substance use status: in withdrawal Qualified Code(s): F17.213 - Nicotine dependence, cigarettes, with withdrawal (4) Opioid dependence Current Visit: Yes (5) Sedative hypnotic or anxiolytic dependence Current Visit: Yes (6) Anxiety and depression Current Visit: No
[2017-03-23] MEDS: NICOTINE 14 MG/24 HOURS TOPICAL PATCH TD SCH (10:05)
[2017-03-23] MEDS: PRENATAL VITAMINS W/ FOLIC ACID TABLET (FP) PO SCH (10:05)
[2017-03-23] MEDS: buPROPion HCL 75 MG TABLET PO SCH (10:05)
[2017-03-23] MEDS: hydrOXYzine PAMOATE 50 MG CAPSULE (FP) PO PRN (10:07)
== END 2017-03-23 10:35 | disposition home or self-care (01) | DRG 772 ==
LOC: YASAS 15:49 → Y5N 15:50
PROVIDERS: ADMIT Psychiatry & Neurology Psychiatry; ATTEND Psychiatry & Neurology Psychiatry
PROC: HZ42ZZZ Group Counseling for Substance Abuse Treatment, Cognitive-Behavioral (ICD-10-PCS; principal; 2017-02-26)
DX: F11.20 Opioid dependence, uncomplicated (principal); F13.20 Sedative, hypnotic or anxiolytic dependence, uncomplicated; F14.20 Cocaine dependence, uncomplicated; F17.210 Nicotine dependence, cigarettes, uncomplicated; F41.8 Other specified anxiety disorders; F90.9 Attention-deficit hyperactivity disorder, unspecified type; E78.5 Hyperlipidemia, unspecified

== ENCOUNTER 2021-01-30 16:22 | Inpatient (IN) | payer OTHER ==
[2021-01-30] MEDS ORDERED: MAGNESIUM CITRATE 300 ML BOTTLE PO PRN (19:27)
[2021-01-30] MEDS ORDERED: ACETAMINOPHEN 325 MG TABLET (FP) PO PRN (19:27)
[2021-01-30] MEDS ORDERED: NICOTINE POLACRILEX 2 MG GUM BUC PRN (19:27)
[2021-01-30] MEDS ORDERED: hydrOXYzine PAMOATE 25 MG CAPSULE (FP) PO PRN (19:27)
[2021-01-30] MEDS ORDERED: MAGNESIUM HYDROX 2400MG/30ML ORAL SUSPENSION 30 ML CUP PO PRN (19:27)
[2021-01-30] MEDS ORDERED: MENTHOL/PHENOL 1 EACH UD MM PRN (19:27)
[2021-01-30 19:31] VITALS: BMI 26.4
[2021-01-30] MEDS ORDERED: methaDONE HCL 10 MG TABLET (FOR DETOX USE ONLY) PO ONE (22:43)
[2021-01-30] MEDS: THIAMINE HCL 100 MG TABLET (FP) PO SCH (23:59)
[2021-01-31] MEDS ORDERED: methaDONE HCL 10 MG TABLET (FOR DETOX USE ONLY) PO ONE (00:15)
[2021-01-31] MEDS: diazePAM 5 MG TABLET PO PRN ×3 (06:33→18:19)
[2021-01-31 07:59] LABS: HEMATOCRIT 40.8 % (35.4-49); HEMOGLOBIN 13.8 GM/dL (11.7-16.9); MCH 29.8 pg (25.7-33.7); MCHC 33.9 g/dl (32.0-35.9); MEAN CELL VOLUME 87.7 fl (80-96); MEAN PLT VOLUME 7.5 fl (7.5-11.1); PLATELET COUNT 318 10^3/uL (134-434); RBC 4.65 M/mm3 (4.00-5.60); RDW 14.1 % (11.9-15.9)
[2021-01-31 08:17] LABS: ALBUMIN 3.1 g/dl (3.4-5.0); BLOOD UREA NITROGEN 14.6 mg/dL (7-18); CALCIUM 8.2 mg/dL (8.5-10.1)
[2021-01-31 08:20] LABS: CREATININE 0.7 mg/dL (0.55-1.3)
[2021-01-31 08:21] LABS: BILIRUBIN,TOTAL 0.4 mg/dL (0.2-1)
[2021-01-31] MEDS ORDERED: methaDONE HCL 10 MG TABLET (FOR DETOX USE ONLY) ONE (09:10)
[2021-01-31] MEDS: PRENATAL VITAMINS W/ FOLIC ACID TABLET (FP) PO SCH (10:22)
[2021-01-31] MEDS: MAG HYDROX/AL HYDROX/SIMETH 30 ML UNIT-DOSE CUP PO PRN ×2 (12:28→19:47)
[2021-01-31] MEDS: cloNIDine HCL 0.1 MG TABLET PO PRN (12:28)
[2021-01-31] MEDS: P-EPHED 60MG/TRIPROLIDI 2.5MG TABLET PO PRN (19:43)
[2021-01-31] MEDS: THIAMINE HCL 100 MG TABLET (FP) PO SCH (22:03)
[2021-01-31] MEDS: MELATONIN 5 MG TABLETS PO SCH ×2 (22:03)
[2021-01-31] MEDS: METHOCARBAMOL 500 MG TABLET PO PRN (22:03)
[2021-01-31] MEDS: SUVOREXANT 10 MG TABLET PO PRN (22:04)
[2021-01-31] MEDS: ACETAMINOPHEN 325 MG TABLET (FP) PO PRN (22:56)
[2021-02-01] MEDS: diazePAM 5 MG TABLET PO PRN ×4 (01:24→22:17)
[2021-02-01] MEDS: hydrOXYzine PAMOATE 50 MG CAPSULE (FP) PO PRN ×2 (07:08→17:18)
[2021-02-01] MEDS: MAG HYDROX/AL HYDROX/SIMETH 30 ML UNIT-DOSE CUP PO PRN (07:08)
[2021-02-01] MEDS: P-EPHED 60MG/TRIPROLIDI 2.5MG TABLET PO PRN (07:08)
[2021-02-01] MEDS: ONDANSETRON *ODT* 4 MG TABLET SL PRN ×2 (08:35→22:21)
[2021-02-01] MEDS ORDERED: methaDONE HCL 10 MG TABLET (FOR DETOX USE ONLY) PO ONE (10:00)
[2021-02-01] MEDS: PRENATAL VITAMINS W/ FOLIC ACID TABLET (FP) PO SCH (10:13)
[2021-02-01] MEDS: ACETAMINOPHEN 325 MG TABLET (FP) PO PRN (15:39)
[2021-02-01] MEDS: cloNIDine HCL 0.1 MG TABLET PO PRN (17:18)
[2021-02-01] MEDS: METHOCARBAMOL 500 MG TABLET PO PRN (17:18)
[2021-02-01] MEDS: THIAMINE HCL 100 MG TABLET (FP) PO SCH (22:17)
[2021-02-01] MEDS: MELATONIN 5 MG TABLETS PO SCH (22:18)
[2021-02-01] MEDS: SUVOREXANT 10 MG TABLET PO PRN (22:19)
[2021-02-02] MEDS: hydrOXYzine PAMOATE 50 MG CAPSULE (FP) PO PRN (06:14)
[2021-02-02] MEDS: diazePAM 5 MG TABLET PO PRN (06:14)
[2021-02-02] MEDS: MAG HYDROX/AL HYDROX/SIMETH 30 ML UNIT-DOSE CUP PO PRN (06:14)
[2021-02-02] MEDS: ONDANSETRON *ODT* 4 MG TABLET SL PRN (07:20)
[2021-02-02] MEDS ORDERED: methaDONE HCL 10 MG TABLET (FOR DETOX USE ONLY) ONE (08:40)
[2021-02-02] MEDS: cloNIDine HCL 0.1 MG TABLET PO PRN (09:18)
[2021-02-02] MEDS: PRENATAL VITAMINS W/ FOLIC ACID TABLET (FP) PO SCH (09:18)
[2021-02-02 17:59] VITALS: BP 111/70; PULSE 73; TEMP 98.2
[2021-02-03] MEDS ORDERED: methaDONE HCL 10 MG TABLET (FOR DETOX USE ONLY) PO ONE (10:00)
== END 2021-02-02 17:25 | disposition left against medical advice (07) | DRG 770 ==
LOC: YASAS 16:22 → Y6N 20:00
PROVIDERS: ADMIT Allergy & Immunology; ATTEND Allergy & Immunology
PROC: HZ2ZZZZ Detoxification Services for Substance Abuse Treatment (ICD-10-PCS; principal; 2021-01-30)
DX: F11.23 Opioid dependence with withdrawal (principal); F13.230 Sedative, hypnotic or anxiolytic dependence with withdrawal, uncomplicated; F14.20 Cocaine dependence, uncomplicated; F17.210 Nicotine dependence, cigarettes, uncomplicated; F19.282 Other psychoactive substance dependence with psychoactive substance-induced sleep disorder; F19.280 Other psychoactive substance dependence with psychoactive substance-induced anxiety disorder; F19.24 Other psychoactive substance dependence with psychoactive substance-induced mood disorder; F90.9 Attention-deficit hyperactivity disorder, unspecified type; Z21 Asymptomatic human immunodeficiency virus [HIV] infection status; E78.5 Hyperlipidemia, unspecified; M54.59 Other low back pain; G89.29 Other chronic pain; Z88.0 Allergy status to penicillin; Z88.6 Allergy status to analgesic agent
CPT/HCPCS: 36415; 80053; 85027; 86780; C9803; J0735; Q0162; U0003; U0005

== ENCOUNTER 2022-02-10 00:22 | Inpatient (IN) | payer OTHER ==
[2022-02-10 01:27] VITALS: BMI 26.4
[2022-02-10] MEDS ORDERED: BISMUTH SUBSALICYLATE 524 MG/30 ML PO PRN (01:59)
[2022-02-10] MEDS ORDERED: IBUPROFEN 600 MG TABLET (FP) PO PRN (01:59)
[2022-02-10] MEDS ORDERED: MAG HYDROX/AL HYDROX/SIMETH 30 ML UNIT-DOSE CUP PO PRN (01:59)
[2022-02-10] MEDS ORDERED: MAGNESIUM CITRATE 300 ML BOTTLE PO PRN (01:59)
[2022-02-10] MEDS ORDERED: LOPERAMIDE HCL 2 MG CAPSULE PO PRN (01:59)
[2022-02-10] MEDS ORDERED: IBUPROFEN 400 MG TABLET (FP) PO PRN (01:59)
[2022-02-10] MEDS ORDERED: NICOTINE 10 MG CARTRIDGE (INHALER) IH PRN (01:59)
[2022-02-10] MEDS ORDERED: NALOXONE HCL (KLOXXADO) 8 MG SPRAY NS PRN (01:59)
[2022-02-10] MEDS ORDERED: ACETAMINOPHEN 325 MG TABLET (FP) PO PRN (01:59)
[2022-02-10] MEDS ORDERED: MAGNESIUM HYDROX 2400MG/30ML ORAL SUSPENSION 30 ML CUP PO PRN (01:59)
[2022-02-10] MEDS ORDERED: BENZOCAINE/MENTHOL (CHLORASEPTIC ) LOZENGE MM PRN (01:59)
[2022-02-10] MEDS: NICOTINE 21 MG/24 HOURS TOPICAL PATCH TD SCH (10:27)
[2022-02-10] MEDS: PRENATAL VITAMINS W/ FOLIC ACID TABLET (FP) PO SCH (10:27)
[2022-02-10] MEDS ORDERED: cloNIDine HCL 0.1 MG TABLET PO PRN (11:50)
[2022-02-10] MEDS ORDERED: methaDONE HCL 10 MG TABLET (FOR DETOX USE ONLY) PO ONE (11:50)
[2022-02-10] MEDS: diazePAM 5 MG TABLET PO SCH ×3 (13:02→22:37)
[2022-02-10 14:47] LABS: ALBUMIN 3.4 g/dl (3.4-5.0); BLOOD UREA NITROGEN 13.7 mg/dL (7-18); CALCIUM 8.4 mg/dL (8.5-10.1)
[2022-02-10 14:50] LABS: CREATININE 0.9 mg/dL (0.55-1.3)
[2022-02-10 14:52] LABS: BILIRUBIN,TOTAL 0.2 mg/dL (0.2-1); TOT PROT 6.4 g/dl (6.4-8.2)
[2022-02-10 15:00] LABS: HEMATOCRIT 38.8 % (35.4-49); HEMOGLOBIN 13.3 GM/dL (11.7-16.9); MCH 29.5 pg (25.7-33.7); MCHC 34.4 g/dl (32.0-35.9); MEAN CELL VOLUME 85.7 fl (80-96); MEAN PLT VOLUME 7.2 fl (7.5-11.1); PLATELET COUNT 332 10^3/uL (134-434); RBC 4.53 M/mm3 (4.00-5.60); RDW 14.2 % (11.9-15.9); WHITE BLOOD COUNT 6.1 K/mm3 (4.0-10.0)
[2022-02-10] MEDS: METHOCARBAMOL 500 MG TABLET PO PRN (17:59)
[2022-02-10] MEDS: MELATONIN 5 MG TABLETS PO SCH (22:39)
[2022-02-10] MEDS: THIAMINE HCL 100 MG TABLET (FP) PO SCH (22:39)
[2022-02-10] MEDS: QUEtiapine FUMARATE 50 MG TABLET PO SCH (22:39)
[2022-02-11] MEDS: diazePAM 5 MG TABLET PO SCH ×4 (05:24→22:18)
[2022-02-11] MEDS: METHOCARBAMOL 500 MG TABLET PO PRN ×2 (10:32→17:19)
[2022-02-11] MEDS: PRENATAL VITAMINS W/ FOLIC ACID TABLET (FP) PO SCH (10:32)
[2022-02-11] MEDS: NICOTINE 21 MG/24 HOURS TOPICAL PATCH TD SCH (10:33)
[2022-02-11] MEDS: ONDANSETRON *ODT* 4 MG TABLET SL PRN (17:19)
[2022-02-11] MEDS: MELATONIN 5 MG TABLETS PO SCH (22:18)
[2022-02-11] MEDS: QUEtiapine FUMARATE 50 MG TABLET PO SCH (22:18)
[2022-02-11] MEDS: THIAMINE HCL 100 MG TABLET (FP) PO SCH (22:18)
[2022-02-12] MEDS: diazePAM 5 MG TABLET PO SCH ×3 (05:39→22:12)
[2022-02-12] MEDS: METHOCARBAMOL 500 MG TABLET PO PRN ×2 (05:39→17:37)
[2022-02-12] MEDS: diazePAM 5 MG TABLET PO PRN ×2 (08:48→17:38)
[2022-02-12] MEDS ORDERED: methaDONE HCL 10 MG TABLET (FOR DETOX USE ONLY) PO ONE (10:00)
[2022-02-12] MEDS: PRENATAL VITAMINS W/ FOLIC ACID TABLET (FP) PO SCH (10:27)
[2022-02-12] MEDS: NICOTINE 21 MG/24 HOURS TOPICAL PATCH TD SCH (10:27)
[2022-02-12] MEDS: DICYCLOMINE HCL 10 MG CAPSULE PO PRN ×2 (10:27→20:17)
[2022-02-12] MEDS: MELATONIN 5 MG TABLETS PO SCH (22:12)
[2022-02-12] MEDS: QUEtiapine FUMARATE 50 MG TABLET PO SCH (22:12)
[2022-02-12] MEDS: THIAMINE HCL 100 MG TABLET (FP) PO SCH (22:12)
[2022-02-13] MEDS: diazePAM 5 MG TABLET PO SCH ×2 (05:25→17:15)
[2022-02-13] MEDS: diazePAM 5 MG TABLET PO PRN (08:45)
[2022-02-13] MEDS: ACETAMINOPHEN 325 MG TABLET (FP) PO PRN ×2 (08:47→19:25)
[2022-02-13] MEDS: PRENATAL VITAMINS W/ FOLIC ACID TABLET (FP) PO SCH (10:30)
[2022-02-13] MEDS: NICOTINE 21 MG/24 HOURS TOPICAL PATCH TD SCH (10:30)
[2022-02-13] MEDS: METHOCARBAMOL 500 MG TABLET PO PRN ×2 (10:32→17:16)
[2022-02-13] MEDS: DICYCLOMINE HCL 10 MG CAPSULE PO PRN (11:20)
[2022-02-13] MEDS: ONDANSETRON *ODT* 4 MG TABLET SL PRN (17:19)
[2022-02-13] MEDS ORDERED: METHOCARBAMOL 500 MG TABLET PO ONE (19:30)
[2022-02-13] MEDS: LIDOCAINE 5% TOPICAL PATCH TP SCH (19:47)
[2022-02-13] MEDS ORDERED: METHYL SALICYLATE/MENTHOL OINT 30 GM TUBE TP PRN (21:07)
[2022-02-13] MEDS ORDERED: LIDOCAINE PATCH REMOVAL MC SCH (22:00)
[2022-02-13] MEDS: QUEtiapine FUMARATE 50 MG TABLET PO SCH (22:11)
[2022-02-13] MEDS: MELATONIN 5 MG TABLETS PO SCH (22:11)
[2022-02-13] MEDS: THIAMINE HCL 100 MG TABLET (FP) PO SCH (22:11)
[2022-02-14] MEDS ORDERED: diazePAM 5 MG TABLET PO ONE (06:00)
[2022-02-14] MEDS ORDERED: methaDONE HCL 10 MG TABLET (FOR DETOX USE ONLY) PO ONE (10:00)
[2022-02-14] MEDS: PRENATAL VITAMINS W/ FOLIC ACID TABLET (FP) PO SCH (10:23)
[2022-02-14] MEDS: NICOTINE 21 MG/24 HOURS TOPICAL PATCH TD SCH (10:25)
[2022-02-14] MEDS: LIDOCAINE 5% TOPICAL PATCH TP SCH (10:25)
[2022-02-14] MEDS: METHOCARBAMOL 500 MG TABLET PO PRN (10:27)
[2022-02-14] MEDS: ONDANSETRON *ODT* 4 MG TABLET SL PRN (12:51)
[2022-02-14] MEDS: DICYCLOMINE HCL 10 MG CAPSULE PO PRN (12:51)
[2022-02-14 13:15] VITALS: BP 116/72; PULSE 74; RESP 17; TEMP 98.9
== END 2022-02-14 13:23 | disposition home or self-care (01) | DRG 773 ==
LOC: YASAS 00:22 → Y3N 01:13 → UNDOADMIN 01:13
PROVIDERS: ADMIT Allergy & Immunology; ATTEND Surgery
PROC: HZ2ZZZZ Detoxification Services for Substance Abuse Treatment (ICD-10-PCS; principal; 2022-02-10)
DX: F11.23 Opioid dependence with withdrawal (principal); F10.230 Alcohol dependence with withdrawal, uncomplicated; F13.20 Sedative, hypnotic or anxiolytic dependence, uncomplicated; F14.20 Cocaine dependence, uncomplicated; F17.210 Nicotine dependence, cigarettes, uncomplicated; F19.282 Other psychoactive substance dependence with psychoactive substance-induced sleep disorder; F19.24 Other psychoactive substance dependence with psychoactive substance-induced mood disorder; F90.9 Attention-deficit hyperactivity disorder, unspecified type; M54.50 Low back pain, unspecified; G89.29 Other chronic pain; Z62.810 Personal history of physical and sexual abuse in childhood; Z88.0 Allergy status to penicillin; Z88.8 Allergy status to other drugs, medicaments and biological substances
CPT/HCPCS: 36415; 80053; 85027; 86780; 93005; 93010; C9803-CS; Q0162; U0003; U0005

== ENCOUNTER 2022-02-21 03:11 | Inpatient (IN) | payer OTHER ==
[2022-02-21] MEDS ORDERED: NALOXONE HCL (KLOXXADO) 8 MG SPRAY NS PRN (03:48)
[2022-02-21] MEDS ORDERED: MAGNESIUM CITRATE 300 ML BOTTLE PO PRN (03:48)
[2022-02-21] MEDS ORDERED: guaiFENesin 200 MG/10 ML 10 ML UNIT-DOSE CUPS PO PRN (03:48)
[2022-02-21] MEDS ORDERED: MAGNESIUM HYDROX 2400MG/30ML ORAL SUSPENSION 30 ML CUP PO PRN (03:48)
[2022-02-21] MEDS ORDERED: LOPERAMIDE HCL 2 MG CAPSULE PO PRN (03:48)
[2022-02-21] MEDS ORDERED: P-EPHED 60MG/TRIPROLIDI 2.5MG TABLET PO PRN (03:48)
[2022-02-21] MEDS ORDERED: BENZOCAINE/MENTHOL (CHLORASEPTIC ) LOZENGE MM PRN (03:48)
[2022-02-21] MEDS ORDERED: hydrOXYzine PAMOATE 25 MG CAPSULE (FP) PO PRN (03:48)
[2022-02-21] MEDS ORDERED: DICYCLOMINE HCL 10 MG CAPSULE PO PRN (03:48)
[2022-02-21] MEDS ORDERED: ONDANSETRON *ODT* 4 MG TABLET SL PRN (03:48)
[2022-02-21] MEDS ORDERED: ACETAMINOPHEN 325 MG TABLET (FP) PO PRN ×2 (03:48)
[2022-02-21] MEDS ORDERED: NICOTINE POLACRILEX 2 MG GUM BUC PRN (03:48)
[2022-02-21] MEDS ORDERED: MAG HYDROX/AL HYDROX/SIMETH 30 ML UNIT-DOSE CUP PO PRN (03:48)
[2022-02-21 04:34] VITALS: BMI 25.7
[2022-02-21] MEDS ORDERED: methaDONE HCL 10 MG TABLET (FOR DETOX USE ONLY) PO ONE (09:42)
[2022-02-21 09:53] LABS: HEMATOCRIT 37.5 % (35.4-49); HEMOGLOBIN 12.9 GM/dL (11.7-16.9); MCH 29.6 pg (25.7-33.7); MCHC 34.3 g/dl (32.0-35.9); MEAN CELL VOLUME 86.3 fl (80-96); MEAN PLT VOLUME 6.6 fl (7.5-11.1); PLATELET COUNT 407 10^3/uL (134-434); RBC 4.35 M/mm3 (4.00-5.60); RDW 14.3 % (11.9-15.9); WHITE BLOOD COUNT 4.7 K/mm3 (4.0-10.0)
[2022-02-21 10:06] LABS: CALCIUM 8.5 mg/dL (8.5-10.1)
[2022-02-21 10:07] LABS: ALBUMIN 3.3 g/dl (3.4-5.0); BLOOD UREA NITROGEN 14.8 mg/dL (7-18)
[2022-02-21 10:09] LABS: CREATININE 0.9 mg/dL (0.55-1.3)
[2022-02-21 10:11] LABS: TOT PROT 6.1 g/dl (6.4-8.2)
[2022-02-21 10:12] LABS: BILIRUBIN,TOTAL 0.2 mg/dL (0.2-1)
[2022-02-21] MEDS: METHOCARBAMOL 500 MG TABLET PO PRN ×2 (10:37→21:05)
[2022-02-21] MEDS: NICOTINE 21 MG/24 HOURS TOPICAL PATCH TD SCH (10:38)
[2022-02-21] MEDS: PRENATAL VITAMINS W/ FOLIC ACID TABLET (FP) PO SCH (10:39)
[2022-02-21 12:29] LABS: HIV INTERPRETATION NEGATIVE (NEGATIVE)
[2022-02-21] MEDS: clonazePAM 0.5 MG ODT TABLETS SL PRN (21:05)
[2022-02-21] MEDS: MELATONIN 5 MG TABLETS PO SCH (22:24)
[2022-02-21] MEDS: QUEtiapine FUMARATE 50 MG TABLET PO SCH (22:25)
[2022-02-21] MEDS: THIAMINE HCL 100 MG TABLET (FP) PO SCH (22:25)
[2022-02-22] MEDS: NICOTINE 21 MG/24 HOURS TOPICAL PATCH TD SCH (10:08)
[2022-02-22] MEDS: PRENATAL VITAMINS W/ FOLIC ACID TABLET (FP) PO SCH (10:16)
[2022-02-22] MEDS: clonazePAM 0.5 MG ODT TABLETS SL PRN (22:10)
[2022-02-22] MEDS: THIAMINE HCL 100 MG TABLET (FP) PO SCH (22:10)
[2022-02-22] MEDS: QUEtiapine FUMARATE 50 MG TABLET PO SCH (22:10)
[2022-02-22] MEDS: MELATONIN 5 MG TABLETS PO SCH (22:10)
[2022-02-23] MEDS ORDERED: methaDONE HCL 10 MG TABLET (FOR DETOX USE ONLY) PO ONE (10:00)
[2022-02-23] MEDS: NICOTINE 21 MG/24 HOURS TOPICAL PATCH TD SCH (10:38)
[2022-02-23] MEDS: PRENATAL VITAMINS W/ FOLIC ACID TABLET (FP) PO SCH (10:39)
[2022-02-23] MEDS: clonazePAM 0.5 MG ODT TABLETS SL PRN ×2 (10:40→17:34)
[2022-02-23 12:47] VITALS: RESP 18
[2022-02-23] MEDS: METHOCARBAMOL 500 MG TABLET PO PRN (17:34)
[2022-02-23] MEDS ORDERED: ONDANSETRON *ODT* 4 MG TABLET SL PRN (18:00)
[2022-02-23] MEDS: MELATONIN 5 MG TABLETS PO SCH (22:49)
[2022-02-23] MEDS: THIAMINE HCL 100 MG TABLET (FP) PO SCH (22:49)
[2022-02-23] MEDS: QUEtiapine FUMARATE 50 MG TABLET PO SCH (22:50)
[2022-02-24] MEDS: METHOCARBAMOL 500 MG TABLET PO PRN (06:05)
[2022-02-24] MEDS: clonazePAM 0.5 MG ODT TABLETS SL PRN (06:05)
[2022-02-24 08:51] VITALS: BP 135/84; PULSE 65; TEMP 98.1
[2022-02-24] MEDS: PRENATAL VITAMINS W/ FOLIC ACID TABLET (FP) PO SCH (10:02)
[2022-02-24] MEDS: NICOTINE 21 MG/24 HOURS TOPICAL PATCH TD SCH (10:03)
[2022-02-25] MEDS ORDERED: methaDONE HCL 10 MG TABLET (FOR DETOX USE ONLY) PO ONE (10:00)
== END 2022-02-24 11:07 | disposition left against medical advice (07) | DRG 770 ==
LOC: YASAS 03:11 → Y3N 03:35
PROVIDERS: ADMIT Allergy & Immunology; ATTEND Surgery
PROC: HZ2ZZZZ Detoxification Services for Substance Abuse Treatment (ICD-10-PCS; principal; 2022-02-21)
DX: F11.23 Opioid dependence with withdrawal (principal); F10.20 Alcohol dependence, uncomplicated; F13.20 Sedative, hypnotic or anxiolytic dependence, uncomplicated; F14.20 Cocaine dependence, uncomplicated; F17.210 Nicotine dependence, cigarettes, uncomplicated; F19.24 Other psychoactive substance dependence with psychoactive substance-induced mood disorder; F32.A Depression, unspecified; F90.9 Attention-deficit hyperactivity disorder, unspecified type; M51.26 Other intervertebral disc displacement, lumbar region; R40.0 Somnolence; Z28.310 Unvaccinated for COVID-19; Z28.9 Immunization not carried out for unspecified reason; Z88.0 Allergy status to penicillin; Z88.8 Allergy status to other drugs, medicaments and biological substances; Z56.0 Unemployment, unspecified; Z59.00 Homelessness unspecified
CPT/HCPCS: 36415; 80053; 85027; 86780; 87389; C9803-CS; Q0162; U0003; U0005